=== PATIENT | female | born 1965 | race Caucasian/White ===

== ENCOUNTER 2019-06-09 06:21 | Emergency (ER) | payer OTHER, BC ==
[~2019-06-09] VITALS: Ht 175.3 cm; Wt 104.3 kg
[~2019-06-09 06:21] MED LIST: CRUTCH3 USE; DIPH50 PO; HYDACE5 PO; NAPR500 PO; OXYACE5T PO
[2019-06-09] MEDS ORDERED: TELMISARTAN-HC1 EAC2 PO (06:37)
== END 2019-06-09 07:50 | disposition home or self-care (01) ==
LOC: ER 06:21
DX: M79.18 Myalgia, other site (principal); R07.9 Chest pain, unspecified; V43.52XA Car driver injured in collision with other type car in traffic accident, initial encounter; Z88.1 Allergy status to other antibiotic agents; Z79.899 Other long term (current) drug therapy; I10 Essential (primary) hypertension; F17.200 Nicotine dependence, unspecified, uncomplicated
CPT/HCPCS: 71046; 96374; 99284-25; J1885

== ENCOUNTER 2022-08-02 02:02 | Inpatient (IN) | payer BC ==
[~2022-08-02] VITALS: Ht 165.1 cm; Wt 153.0 kg
[~2022-08-02 02:02] MED LIST changes: +TELMISARTAN-HC1 EAC2 PO
[2022-08-02 02:32] LABS: Hematocrit 41.6 % (33.0-51.0); Hemoglobin 12.8 g/dL (11.5-16.0); Mean Corpuscular HGB 31.2 pg (26.0-34.0); Mean Corpuscular HGB Conc 30.8 g/dL (31.5-36.5); Mean Corpuscular Volume 102 fL (80-100); Mean Platelet Volume 9.6 fL (9.1-12.4); NRBC ABSOLUTE 0.11 K/mm3 (0.00-0.02); Platelet Count 141 K/mm3 (150-400); RDW Coefficient Variation 12.8 % (11.7-14.2)
[2022-08-02 02:39] LABS: PO2 Arterial 68.8 mmHg (80-100)
[2022-08-02 02:40] LABS: PCO2 Arterial 82.1 mmHg (35-45)
[2022-08-02 02:46] LABS: Albumin, Blood 2.4 g/dL (3.4-5.0); Albumin/Globulin Ratio 0.8 (0.8-1.8); Bilirubin, Total 0.1 mg/dL (0.1-1.0); Bun/Creatinine Ratio 14.2 (12.0-20.0); Calcium, Blood 9.7 mg/dL (8.5-10.1); Creatinine, Blood 0.92 mg/dL (0.40-1.00); Total Protein, Blood 5.4 g/dL (6.4-8.2)
[2022-08-02 03:00] LABS: BAND PERCENT MAN 10 % (0-8); BASOPHILS PERCENT MAN 0 % (0-2); EOSINOPHILS PERCENT MAN 1 % (0-6); LYMPHOCYTES % ATYPICAL MANUAL 6 % (0-0); LYMPHOCYTES ABSOLUTE MAN 7.87 K/mm3 (0.84-5.20); LYMPHOCYTES PERCENT MAN 69 % (21-46); METAMYELOCYTE PERCENT MAN 1 % (0-0); MONOCYTES ABSOLUTE MAN 0.42 K/mm3 (0.16-1.47); MONOCYTES PERCENT MAN 4 % (4-13); MYELOCYTE PERCENT MAN 1 % (0-0); NEUTROPHILS ABSOLUTE MAN 1.68 K/mm3 (1.96-9.15); PROMYELOCYTE ABSOLUTE MAN 0.21 K/mm3 (0.00-0.00); PROMYELOCYTE PERCENT MAN 2 % (0-0); SEG NEUTROPHILS PERCENT MAN 6 % (41-73); TOTAL CELLS COUNTED 100
[2022-08-02 03:35] LABS: Calcium, Ionized (POC) 1.23 mmol/L (1.10-1.46); Chloride (POC) 104 mmol/L (98-108); Creatinine (POC) 0.9 mg/dL (0.6-1.0); Glucose (ISTAT POC) 391 mg/dL (70-99); Hemoglobin (POC) 12.9 g/dL (12.0-16.0); Potassium (POC) 2.9 mmol/L (3.5-5.5); Sodium (POC) 142 mmol/L (135-148); Total CO2 (POC) 23 mmol/L (21-32)
[2022-08-02 05:22] LABS: PCO2 Arterial 58.2 mmHg (35-45); PO2 Arterial 60.1 mmHg (80-100)
[2022-08-02 05:24] LABS: pH Blood Arterial 7.18 (7.35-7.45)
[2022-08-02 05:29] LABS: BASOPHILS ABSOLUTE AUTO 0.09 K/mm3 (0.00-0.23); BASOPHILS PERCENT AUTO 1 % (0-2); EOSINOPHILS ABSOLUTE AUTO 0.11 K/mm3 (0.00-0.68); EOSINOPHILS PERCENT AUTO 1 % (0-6); IMMATURE GRAN ABSOLUTE AUTO 0.38 K/mm3 (0.00-0.10); IMMATURE GRAN PERCENT AUTO 2 % (0-1); LYMPHOCYTES ABSOLUTE AUTO 4.35 K/mm3 (0.84-5.20); LYMPHOCYTES PERCENT AUTO 27 % (21-46); MONOCYTES ABSOLUTE AUTO 0.52 K/mm3 (0.16-1.47); MONOCYTES PERCENT AUTO 3 % (4-13); Mean Corpuscular HGB 31.9 pg (26.0-34.0); Mean Corpuscular HGB Conc 32.4 g/dL (31.5-36.5); Mean Corpuscular Volume 98 fL (80-100); Mean Platelet Volume 9.5 fL (9.1-12.4); NEUTROPHILS ABSOLUTE AUTO 10.97 K/mm3 (1.96-9.15); NEUTROPHILS PERCENT AUTO 67 % (41-73); NRBC ABSOLUTE 0.03 K/mm3 (0.00-0.02); NRBC Auto 0.2 /100 WBC (0.0-0.2); Platelet Count 276 K/mm3 (150-400); RDW Coefficient Variation 12.9 % (11.7-14.2); RDW Standard Deviation 46.5 fL (35.1-46.3); Red Blood Cell Count 3.76 M/mm3 (3.80-5.20); White Blood Cell Count 16.42 K/mm3 (4.00-11.30)
[2022-08-02 06:10] LABS: Alanine Aminotransfer (ALT/SGP 202 U/L (12-78); Albumin, Blood 2.1 g/dL (3.4-5.0); Albumin/Globulin Ratio 0.8 (0.8-1.8); Alk Phos 122 U/L (50-136); Anion Gap 10 mmol/L (6-16); Aspartate Aminotrans (AST/SGOT 830 U/L (12-37); Bilirubin, Total 0.2 mg/dL (0.1-1.0); Blood Urea Nitrogen 13 mg/dL (8-24); Bun/Creatinine Ratio 15.4 (12.0-20.0); CO2, Blood 22 mmol/L (21-32); Chloride, Blood 113 mmol/L (98-108); Cholesterol 168 mg/dL (50-200); Creatinine, Blood 0.85 mg/dL (0.40-1.00); Globulin, Blood 2.8 g/dL (2.2-4.0); Glomerular Filtration Rate 80 (60-); Glucose, Blood 332 mg/dL (70-99); Sodium, Blood 145 mmol/L (136-145); Total Protein, Blood 4.9 g/dL (6.4-8.2)
[2022-08-02 06:13] LABS: Calcium, Blood 6.8 mg/dL (8.5-10.1)
--- NOTE | 2022-08-02 07:20 | NUR ---
This author assumed patient cares at 0455 upon arrival from component lab tech. Unfortunately at 0503 code blue called due to Ventricular Tachycardia on monitor with no auscultative, palpable or Doppler pulse. Code team arrived shortly after. Please see eMAR for medications given. Ultimately ROSC achieved after 3 rounds of compressions. Please see detailed notes in chart. Due to the above, unable to properly do any kind of assessment until much later. As of the end of this shift, patient is intubated and sedated with family at bedside. She has her parents, her and daughter present. Limited Assessment: NEURO: Sedated on propofol. Not following commands. Was briefly off propofol during code event and opened eyes, but no other movement appreciated. CARDS: s/p 1 DEL stent to proximal LAD. Please see previous notes, had assumed-STEMI in field, multiple rounds of compressions MANAGER VEHICLE and also in ED. See above for notes while in ICU. BP supported via Levophed and Vasopressin. RESP: intubated w/ 7.5cm ETT, 25cm at the teeth. Bloody secretions inline suctioning. LS very coarse and diminished in all wang. MSK: not assessed; in soft restraints for safety. No purposeful movement noted. INTEG: not assessed; no gross abnormalities noted. GI/: carpio patent and draining to gravity. No BM this shift. DRIPS: Potassium Chloride Amiodarone Propofol Levophed Sodium Bicarbonate Vasopressin
[2022-08-02 08:17] LABS: Base Excess Venous -7.7 mmol/L; Bicarbonate Venous 17.1 mmol/L (24.0-30.0); PCO2 Venous 58.1 mmHg (38-42)
[2022-08-02 08:18] LABS: pH Blood Venous 7.16 (7.34-7.37)
[2022-08-02 08:44] LABS: Calcium, Blood 8.2 mg/dL (8.5-10.1); Creatinine, Blood 1.12 mg/dL (0.40-1.00); Potassium, Blood 3.5 mmol/L (3.5-5.5)
--- NOTE | 2022-08-02 10:16 | NUR ---
Spiritual Care Visit Pt. is intubated and not responsive. Pts. mother is present and welcomes my visit. Mother is appropraiately grieving and unsettled about a limited prognosis. Listen empathetically with a calming presence. Mother verbalizes about the families lamonte and also verbalizes understanding about the serious nature of Pts. condition. Establish rapport with mother. Prayed with Pt. and mother. Mother verbalized gratitude for the spiritual care visit.
--- NOTE | 2022-08-02 11:19 | NUR ---
DR CARDONA TO BEDSIDE NEURO ASSESSMENT COMPLETED BY MD, CONVERSATION/UPDATE PROVIDED TO FAMILY (, DAUGHTER, PARENTS)
--- NOTE | 2022-08-02 14:29 | NUR ---
"Spiritual Care Request | Nurse request Pt. is intubated and unresponsive. Spouse, daughter, Father and mother are present as is daughter's SO. Family is appropriately grieving as Pt. is still on life support. Nurse Staples and Justice Mcdonnell attend to Pt. Family understands the serious nature of Pts condition and verbalize taking pt. off life suopport. With theraputic listening and a calming presence prepare family for the transition. Scripture is read and pasotral prayer is given for both the Pt. and family. Stay with family and facilitate a life history and establish rapport. Will remain available to family. Family verbalized gratitude for the spiritual care visit."
--- NOTE | 2022-08-02 14:52 | NUR ---
Case Conference: Family has spoken with Dr. Wells and bedside RN Bel. Family has elected to de-escalate care, and initiate comfort care. Orders placed with verbal confirmation from Dr. Rendon. Palliative care will remain available for supportive visits as needed.
--- NOTE | 2022-08-02 15:20 | NUR ---
"Spiritual Care | EOL Family and friends gathered as pt. is exubated. Pts. parents stepped out of the room. Pastoral care is given to Spouse, daughter, and parents. EOL Prayer is given soom after extubation, and Pt. declined quickly. Pt. transitioned at 15:05. Spouse has chosen [facility] in [place] for care. Family expressed gratitude for the spiritual care and nursing care."
--- NOTE | 2022-08-02 15:57 | NUR ---
COMFORT CARE PT'S FAMILY HAS DECIDED TO PROCEED WITH COMFORT CARE, COMFORT CARE ORDERS RECIEVED
--- NOTE | 2022-08-02 16:00 | NUR ---
[id number] SUMMARY 1325 - VASOPRESSIN RESTARTED DUE TO HYPOTENSION 1335 - LEVO TITRATED TO MAX OF 30 MD NOTIFIED OF ABOVE, SEE ADDITIONAL NOTES
--- NOTE | 2022-08-02 17:27 | NUR ---
[id number] SUMMARY DRIPS: 0930 VASOPRESSIN AND PROPOFOL OFF 1010 LEVO DECREASED TO 20MCG/MIN 1020 LEVO DECREASED TO 18 1030 LEVO DECREASED TO 16 1040 LEVO DECREASED TO 14 1050 LEVO DECREASED TO 12 1055 LEVO DECREASED TO 10 1100 LEVO DECREASED TO 8 1105 LEVO DECREASED TO 6 1110 LEVO DECREASED TO 4 1115 LEVO DECREASED TO 2 1120 LEVO OFF TR BAND: 0945 2ML REMOVED FROM TR BAND 1015 2 ML REMOVED 1030 2ML REMOVED 1045 2ML REMOVED 1100 2 ML REMOVED 1115 2 ML REMOVED NO BLEEDING OR HEMATOMA NOTED WITH ANY OF THE ABOVE AIR REMOVAL.
--- NOTE | 2022-08-02 19:35 | NUR ---
BELONGINGS PT'S FAMILY TOOK REMAINING CLOTHING HOME. NO CELL PHONE OR WALLET PRESENT ON ADMISSION. FAMILY OPTED TO LEAVE PT'S NOSERING AND [address] ADVISED FAMILY THEY MAY NOT GET THEM BACK WHEN PT TRANSFERRED TO HOME. DAUGHTER AND IN AGREEMENT AND STATE PT WOULDNT WANT EARRINGS/NOSERING REMOVED. CHIEF LEARNING OFFICER AND MUSIC LIBRARIAN NOTIFIED.
== END 2022-08-02 19:00 | DRG 246 ==
LOC: ER 02:02 → ICUW 03:37 → ICUE 03:37 → ICUW 03:37 → ICUE 04:00 → ICUW 18:48
PROVIDERS: Family Medicine; Internal Medicine; Student in an Organized Health Care Education/Training Program; ADMIT Internal Medicine Cardiovascular Disease
PROC: 5A12012 Performance of Cardiac Output, Single, Manual (ICD-10-PCS; principal; 2022-08-02)
PROC: 027034Z Dilation of Coronary Artery, One Artery with Drug-eluting Intraluminal Device, Percutaneous Approach (ICD-10-PCS; 2022-08-02)
PROC: 4A023N7 Measurement of Cardiac Sampling and Pressure, Left Heart, Percutaneous Approach (ICD-10-PCS; 2022-08-02)
PROC: B211YZZ Fluoroscopy of Multiple Coronary Arteries using Other Contrast (ICD-10-PCS; 2022-08-02)
PROC: B240ZZ3 Ultrasonography of Single Coronary Artery, Intravascular (ICD-10-PCS; 2022-08-02)
PROC: 3E033XZ Introduction of Vasopressor into Peripheral Vein, Percutaneous Approach (ICD-10-PCS; 2022-08-02)
PROC: 0BH18EZ Insertion of Endotracheal Airway into Trachea, Via Natural or Artificial Opening Endoscopic (ICD-10-PCS; 2022-08-02)
PROC: 5A1935Z Respiratory Ventilation, Less than 24 Consecutive Hours (ICD-10-PCS; 2022-08-02)
DX: I21.09 ST elevation (STEMI) myocardial infarction involving other coronary artery of anterior wall (principal); J96.01 Acute respiratory failure with hypoxia; R57.9 Shock, unspecified; Z68.43 Body mass index [BMI] 50.0-59.9, adult; Z51.5 Encounter for palliative care; I49.01 Ventricular fibrillation; I46.2 Cardiac arrest due to underlying cardiac condition; E66.01 Morbid (severe) obesity due to excess calories; E87.6 Hypokalemia; I49.8 Other specified cardiac arrhythmias; I10 Essential (primary) hypertension; F17.210 Nicotine dependence, cigarettes, uncomplicated; Z88.1 Allergy status to other antibiotic agents; Z79.899 Other long term (current) drug therapy
CPT/HCPCS: 31500; 36556; 36600; 51702; 71045; 76937; 80047; 80048; 80053; 82465; 82803; 82947; 83605; 83880; 84484; 85014; 85025; 85347; 92950; 92978; 93005; 93010; 93454; 94002; 96365-59; 96375-59; 99291-25; A9270; C1725; C1753; C1769; C1874; C1887; C1894; C8929; C9606; J0282; J1644; J1815; J1940; J2060; J2270; J2704; J3246; J3475; J3480; J7030; J7040; J7050; J7060; Q9957; Q9967